=== PATIENT | female | born 1950 | race Caucasian/White ===

== ENCOUNTER 2024-04-29 11:55 | Emergency (ER) | payer MEDICARE, OTHER, SELFPAY ==
[2024-04-29] VITALS (7 sets, daily range): BP systolic 135–170; BP diastolic 80–98; BMI 26.6
[2024-04-29 12:20] LABS: % Basophils 0.5 % (0-2); % Eosinophils 1.6 % (0-6); % Immature Granulocytes 0.4 % (0-0.5); % Lymphocytes 22.8 % (20.5-51.1); % Monocytes 9.8 % (1.7-9.3); % Neutrophils 64.9 % (42.2-75.2); Absolute Eosinophils 0.1 10^3/uL (0-0.7); Absolute Lymphocytes 1.8 10^3/uL (1.2-3.4); Absolute Monocytes 0.8 10^3/uL (0.1-0.6); Absolute Neutrophils 5.2 10^3/uL (1.4-6.5); Hematocrit 40.5 % (37.0-47.0); Hemoglobin 13.5 g/dL (12.0-16.0); Mean Corp Hgb Conc. 33.3 g/dL (33.0-37.0); Mean Corpuscular Hgb 28.5 pg (27.0-31.0); Mean Corpuscular Volume 85.6 fL (81.0-99.0); Mean Platelet Volume 12.6 fL (7.4-10.4); Nucleated Red Blood Cells % 0 %; Platelet Count 194 10^3/uL (130-400); Red Blood Cell Count 4.73 10^6/uL (4.20-5.40); Red Cell Dist. Width 15.1 % (11.5-14.5); White Blood Cell Count 7.9 10^3/uL (4.8-10.8)
[2024-04-29 12:35] LABS: ALT (SGPT) 20 U/L (0-35); AST (SGOT) 26 U/L (14-36); Albumin 4.4 g/dl (3.5-5.0); Alkaline Phosphatase 71 U/L (38-126); Blood Urea Nitrogen 19 mg/dl (7-17); Calcium 10.1 mg/dl (8.4-10.2); Carbon Dioxide 32 mmol/L (22-30); Chloride 105 mmol/L (98-107); Glucose 96 mg/dl (70-99); Potassium 4.9 mmol/L (3.5-5.1); Sodium 144 mmol/L (135-145); Total Bilirubin 0.5 mg/dl (0.2-1.3); Total Protein 6.8 g/dl (6.3-8.2); eGFR > 60.00
[2024-04-29 12:46] LABS: Troponin I < 0.012 ng/ml
--- NOTE | 2024-04-29 14:41 | ED.GENMED ---
History of Present Illness
General
Chief Complaint: Change in Mental Status
Source: patient and spouse
Time Seen by Provider: 04/29/24 14:05
History of Present Illness
History of Present Illness:
Patient is a 73-year-old woman with history of hypertension, hyperlipidemia, hypothyroidism, history of breast cancer in remission presenting to the emergency department with changes in her memory and mental status. Patient states that she feels
like she is in her usual state of health however she believes her thinks she is losing her memory. Her states this is ongoing for a few months now. However it worsened today where she was very forgetful that she ordered a card and
used the mop and forgot about a gift card. She called her primary care doctor who told her to come to the emergency room for further evaluation. Patient and deny any fevers or chills. No nausea vomiting or diarrhea. No URI symptoms. Has
been has noticed a cough on himself though. No recent travel. No falls. She is not on a blood thinner. No dysarthria or dysphagia. No numbness tingling. No weakness.
Past History
Past History
ED Past Medical History: HTN and Hypothyroidism
ED Past Surgical History: Other (Breast surgery)
Patient has exhibited threatening behavior?: No
PSI?: No
Social History
Personal:
Phy Exam
Physical Exam
Physical Exam:
GENERAL: in no acute distress
HEENT: normocephalic, extraocular movements intact, moist oral mucosa
NECK: normal inspection
RESPIRATORY: no respiratory distress, clear to auscultation bilaterally
CARDIOVASCULAR: regular rate and rhythm
ABDOMEN/: soft, non-distended, non-tender to palpation, no rebound or guarding
EXTREMITIES: non-tender, no edema/swelling
NEUROLOGIC: alert and oriented x 3, cranial nerves II-XII intact, right upper extremity strength 5/5, left upper extremity strength 5/5, right lower extremity strength 5/5, left lower extremity strength 5/5, normal sensation to light touch, normal
[id number] and [id number], gait not tested formally
SKIN: warm
Course
Orders/Labs/Results
Orders:
Orders
04/29/24 12:01
Electrocardiogram (*1) Urgent
Reason for Study: Hypertension, Benign
04/29/24 12:02
EKG- Treatment ONCE
04/29/24 12:08
Complete Blood Count/With Diff Urgent
Comprehensive Metabolic Panel Urgent
Troponin I Urgent
04/29/24 14:34
CT Head W/o Iv Contrast Urgent
Comment:
Reason For Exam: ams
CR Chest - 2 Views Urgent
Comment:
Reason For Exam: cough
04/29/24 14:39
COVID-19 Antigen Urgent
Source: Nasal Swab
Urinalysis Reflex To Culture Urgent
Date Specimen was Collected: 04/29/24
Time Specimen was Collected: 14:35
Abnormal Lab Results
04/29/24
12:08
RDW 15.1 H %
(11.5-14.5)
MPV 12.6 H fL
(7.4-10.4)
Absolute Monos (auto) 0.8 H 10^3/uL
(0.1-0.6)
Monocytes % 9.8 H %
(1.7-9.3)
Carbon Dioxide 32 H mmol/L
(22-30)
BUN 19 H mg/dl
(7-17)
04/29/24 12:08
04/29/24 12:08
Vital Signs
Initial and Last Documented VS:
Initial Vital Signs
Temp Pulse Resp BP Pulse Ox
98.1 F 84 18 165/98 98
04/29/24 11:58 04/29/24 11:58 04/29/24 11:58 04/29/24 11:58 04/29/24 11:58
Last Documented Vital Signs
Temp Pulse Resp BP Pulse Ox
97.6 F 67 20 170/93 97
04/29/24 14:34 04/29/24 16:19 04/29/24 16:19 04/29/24 16:19 04/29/24 16:19
MDM/Problems Addressed
Differential Diagnosis Includes:
Patient is a 73-year-old woman with history of hypertension, hyperlipidemia, hypothyroidism, breast cancer in remission presenting to the emergency department presenting to the emergency department with a change in her memory issues has been ongoing
for a few months that acutely worsened today. Vitals here are unremarkable and exam is reassuring. Will rule out infectious etiology versus intracranial mass versus electrolyte derangement. History and exam not consistent with stroke. Blood work
obtained prior to evaluation is unremarkable. Will obtain chest x-ray COVID swab urine sample and CT scan of the head.
*Critical Care Note
Total Time (30-74mins, 75-104mins- exclusive of procedures): Not Applicable
Update Note
Update Note:
Blood work on workable. Urine negative for signs infection. CT scan of the head negative. I did update patient and at bedside. Patient has not had any recurrent episodes of memory issues here. She is ANO x 3 and continues to be without
any complaints. After shared decision making has been does feel comfortable taking patient home for outpatient MRI and neurology evaluation for cognitive testing. I did offer admission however patient and family would prefer outpatient follow-up.
Patient is stable for discharge at this time.
ED Attending Note
-
Portions of this chart may have been created with voice recognition software.� Occasional wrong word or��sound alike� substitutions may have occurred due to the inherent limitations of voice recognition software.
Discharge Plan
Departure
Patient Disposition: Home (Routine Discharge)
Date of Disposition: 04/29/24
Time of Disposition: 17:04
Patient with high blood pressure during this ER visit?: Yes
Discharge Problem:
Memory change
Instructions: BLOOD PRESSURE
Prescriptions:
No Action
levothyroxine 100 mcg Tablet
100 mcg PO DAILY
simvastatin 20 mg Tablet
20 mg PO HS
cholecalciferol (vitamin D3) [Vitamin D3] 50 mcg (2,000 unit) Tablet
50 mcg PO DAILY
mupirocin 2 % ointment
1 applic topical BID Qty: 1 0RF
Patient Comments:
completed this am
celecoxib [Celebrex] 200 mg capsule
200 mg PO DAILY Qty: 14 0RF
tramadol [Ultram] 50 mg tablet
50 mg PO Q6H PRN (Reason: 1 tab moderate pain, 2 if severe ) Qty: 30 0RF
Rx Instructions:
Ongoing therapy
Dx Orthopedic surgery
acetaminophen 500 mg capsule
1,000 mg PO Q6H Qty: 30 0RF
Rx Instructions:
DO NOT exceed >4000 mg daily.
aspirin 325 mg capsule
325 mg PO DAILY Qty: 30 0RF
Rx Instructions:
Take daily x4 weeks for blood clot prevention.
docusate sodium [Colace] 100 mg capsule
100 mg PO BID Qty: 30 0RF
senna 8.6 mg capsule
17.2 mg PO BID Qty: 30 0RF
losartan 25 mg Tablet
25 mg PO QPM Qty: 1 0RF
Rx Instructions:
HOLD if systolic blood pressure <130 while on Tramadol.
Referrals:
Kimberly Freeman MD [Family Provider] -
Activity Restrictions/Additional Instructions:
You were seen in the Emergency Department today. While you were here we performed blood work, which was reassuring. Please make sure you get an outpatient MRI and follow-up with neurology for cognitive testing.
We would like for you to follow up with your primary care physician for further evaluation. If you experience fever, worsening of your symptoms, or develop any other new or concerning symptoms, please return to the Emergency Department immediately.
Please see the attached sheet for additional information.
Interventions
Interventions:
*Risk Screen - Suicide Last Done: 04/29/24 11:58
*General Assessment Last Done: 04/29/24 11:58
*Neglect/Abuse Screening Last Done: 04/29/24 11:58
ED- Fall Risk Assessment Last Done: 04/29/24 13:41
*ED COVID-19 Vaccine History Last Done: 04/29/24 13:41
ED- Pulmonary Assessment Last Done: 04/29/24 13:41
ED-Psychological Assessment Last Done: 04/29/24 13:41
ED- Neurological Assessment Last Done: 04/29/24 13:41
ED- Cardiac Assessment Last Done: 04/29/24 13:41
ED Swallowing Screen Last Done: 04/29/24 13:41
Discharge Date and Time
Print Language: CANADIAN
[2024-04-29 15:05] LABS: COVID-19 Antigen Negative (Negative)
[2024-04-29 15:10] LABS: Urine Albumin Negative (Neg - Trace); Urine Bilirubin Negative (Negative); Urine Character Clear (Clear); Urine Color Yellow; Urine Glucose Negative (Negative); Urine Ketone Negative (Negative); Urine Leukocyte Negative (Negative); Urine Nitrite Negative (Negative); Urine Occult Blood Negative (Negative); Urine Urobilinogen Negative (Neg - 1+)
--- NOTE | 2024-04-29 16:21 | EDRN ---
the pt is resting in stretcher in the lowest position, side rails up x2, call coy within reach, HOB elevated, no s/s of distress, no complaints offered, the pts is at the pts bedside and is asking to speak to the provider, the pt also asked
this RN for bottled water, this RN notified the pt that the ER does not have bottled water however this RN offered the pt ice water from our water fountain and the pt declined, the pt has a LUE limb alert and this RN placed the BP cuff on the pts
RULaura, the pt stated to this RN, 'Are you aware that i have an IV there? Should you really be putting the BP cuff on the same side that i have an IV that just seems odd that you would do that', this RN explained to the pt that it was okay to have a BP
cuff on the same arm as a PIV and this RN reminded the pt that she has a LUE limb alert, will continue to monitor the pt closely
--- NOTE | 2024-04-29 17:00 | EDRN ---
the pt pressed the call coy and this RN entered the pts room, the pt stated to this RN that she wants ice water, this RN reminded the pt that this RN has water from the water fountain and that this RN does not have bottled water, the pt was
agreeable to water from the water fountain, this RN provided the pt ice water, the provider stated to this RN that she would update the pt and the pts shortly, will continue to monitor the pt closely
== END 2024-04-29 17:18 | disposition home or self-care (01) ==
LOC: EMR 11:55
PROVIDERS: Emergency Medicine; EMERGENCY PHYSICIAN Student in an Organized Health Care Education/Training Program; FAMILY PHYSICIAN Internal Medicine
DX: R41.82 Altered mental status, unspecified (principal); I10 Essential (primary) hypertension; E78.00 Pure hypercholesterolemia, unspecified; E03.9 Hypothyroidism, unspecified; Z85.3 Personal history of malignant neoplasm of breast
CPT/HCPCS: 99284; 70450; 71046; 80053; 81003; 84484; 85025; 87811; 93005

== ENCOUNTER → 2025-07-10 08:52 | Outpatient (REF) | payer MEDICARE, OTHER, SELFPAY | LOC: PAVMRI 08:52 | PROVIDERS: ATTENDING PHYSICIAN Specialist; FAMILY PHYSICIAN Internal Medicine | DX: M25.552 Pain in left hip (principal) | CPT/HCPCS: 73721 ==